=== PATIENT | female | born 1940 | race Caucasian/White ===

== ENCOUNTER → 2017-04-16 | Outpatient (CLI) | payer MEDICARE, BC ==
[2017-04-16 21:21] LABS: BASO % 0.4 % (0.0-2.0); EOS # 0.1 (0.0-0.7); EOS % 2.4 % (0-4.0); GRAN # 3.1 (1.4-6.5); GRAN % 65.4 % (42.2-75.2); HEMATOCRIT 38.3 % (37.0-47.0); HEMOGLOBIN 12.4 g/dl (12.5-16.0); LYMPH # 1.1 (1.2-3.4); LYMPH % 22.4 % (20.0-51.0); MEAN CELL VOLUME 88 fl (80.0-100.0); MEAN CORPUSCULAR HEMOGLOBIN 29 pg (27.0-31.0); MEAN CORPUSCULAR HGB CONC 32 g/dl (33.0-37.0); MONO # 0.4 (0.1-0.6); PLATELET COUNT 178 K/mm3 (130-400); RED BLOOD COUNT 4.35 M/mm3 (4.10-5.30); REDCELL DISTRIBUTION WIDTH-CV 13.3 % (11.5-14.5); WHITE BLOOD COUNT 4.7 K/mm3 (4.8-10.8)
[2017-04-16 21:30] LABS: ADJUSTED CALCIUM 9.1 mg/dL (8.4-10.2); ALBUMIN 4.2 gm/dL (3.5-5.0); BILIRUBIN,TOTAL 0.5 mg/dL (0.0-1.0); CALCIUM 9.3 mg/dL (8.4-10.2); CREATININE, serum 0.72 mg/dL (0.52-1.25); POTASSIUM 4.2 mmol/L (3.4-5.0); TOTAL PROTEIN 7.3 gm/dL (6.4-8.2)
== END ==
LOC: ZCOL.LAB 21:12
PROVIDERS: Internal Medicine
DX: F01.51 Vascular dementia, unspecified severity, with behavioral disturbance (principal); E03.9 Hypothyroidism, unspecified

== ENCOUNTER → 2017-11-30 | Outpatient (CLI) | payer MEDICARE, BC | LOC: ZCOL.LAB 11:24 | DX: F32.9 Major depressive disorder, single episode, unspecified (principal) ==

== ENCOUNTER → 2018-04-08 | Outpatient (CLI) | payer MEDICARE, BC | LOC: ZCOL.LAB 11:14 | DX: E03.9 Hypothyroidism, unspecified (principal) ==

== ENCOUNTER 2018-12-19 13:30 | Inpatient (IN) | payer MEDICARE, BC ==
[~2018-12-19] VITALS: Ht 167.6 cm; Wt 68.9 kg
[2018-12-19] MEDS ORDERED: ARICEPT10 MG PO (13:46)
[2018-12-19] MEDS ORDERED: ALEVE 220MG220 MG PO (13:46)
[2018-12-19] MEDS ORDERED: SYNTHROID0.112 MG/T PO (13:47)
[2018-12-19] MEDS ORDERED: NAMENDA XR 28MG PO (13:48)
[2018-12-19] MEDS ORDERED: REMERON 15M15 MG/TA1 PO (13:50)
[2018-12-19] MEDS ORDERED: ZOLOFT 100MG100 MG PO (13:50)
[2018-12-19 13:59] LABS: ALBUMIN 4.2 gm/dL (3.5-5.0); BILIRUBIN,TOTAL 0.3 mg/dL (0.0-1.0); CALCIUM 9.7 mg/dL (8.4-10.2); CREATININE, serum 0.89 (0.52-1.25); POTASSIUM 3.9 mmol/L (3.4-5.0); TOTAL PROTEIN 7.9 gm/dL (6.4-8.2)
[2018-12-19 14:01] LABS: BASO % 0.4 % (0.0-2.0); EOS # 0.1 (0.0-0.7); GRAN # 5.2 (1.4-6.5); GRAN % 74.4 % (42.2-75.2); HEMOGLOBIN 11.9 g/dl (12.5-16.0); LYMPH # 1.2 (1.2-3.4); LYMPH % 16.8 % (20.0-51.0); MEAN CELL VOLUME 89 fl (80.0-100.0); MEAN CORPUSCULAR HEMOGLOBIN 29 pg (27.0-31.0); MEAN CORPUSCULAR HGB CONC 32 g/dl (33.0-37.0); MEAN PLATELET VOLUME 9.5 fl (7.4-10.4); MONO # 0.4 (0.1-0.6); MONO % 6.3 % (1.7-9.3); PLATELET COUNT 286 K/mm3 (130-400); RED BLOOD COUNT 4.12 M/mm3 (4.10-5.30); REDCELL DISTRIBUTION WIDTH-CV 13.2 % (11.5-14.5)
[2018-12-19 14:03] LABS: HEMATOCRIT 36.7 % (37.0-47.0)
[2018-12-19 14:14] LABS: PROTHROMBIN TIME 11.7 SECONDS (9.7-12.8)
--- NOTE | 2018-12-19 17:15 | NUR ---
arrived on unit per cart, assisted off cart and into bed, crying and c/o pain with movement, is teaful and appears very scared, family at bedside, Dr Griggs in to see patient
[2018-12-19 17:28] VITALS: BP 175/78; PULSE 70; TEMP 97.8
--- NOTE | 2018-12-19 17:40 | NUR ---
IV fluids started, medicated with morphine 2mg slow IV
--- NOTE | 2018-12-19 18:00 | NUR ---
appears to be resting quietly now, niece at bedside, explained to patient and niece will need to place catheter and remove linens that have remained under here, nice verbalizes understanding, dodd placed and she tolerated well, urine is light yellow but very cloudy, when rolled to her right side she cried in pain but once linen removed she was able to calm down and begin to rest, when asked where her pain is she stares blankly and is unable to answer, has splint dressing to right arm and it is in a sling,
--- NOTE | 2018-12-19 18:10 | NUR ---
she is alert but not oriented at this time, skin warm and dry, color pink, heart rate strong and regular, lungs CTA, bowel sounds present in 4 quads and abdomen is soft and non tender, peripheral pulses present in 4 extremities,
--- NOTE | 2018-12-19 19:10 | NUR ---
bedside shift report given to HUNTER Le
[2018-12-19 20:29] VITALS: BP 169/64; PULSE 71; TEMP 97.6
--- NOTE | 2018-12-19 20:47 | NUR ---
PT IN BED WITH HOB AT 15 DEGREE ANGLE. PT HAS RIGHT ARM IN KATELYN WRAP AND SLING, ICE TO RIGHT HIP. PT WAS CRYING IN PAIN, GAVE MORAPHINE FOR PAIN. PT'S FAMILY STAYED TILL SHE WAS SETTLED IN AND SLEEPING/RESTING, FAMILY WENT HOME. PT HAS DEMENTIA AND HAS HAD IT FOR 10 YEARS. PT HAS NO FURTHER NEEDS CALL LIGHT WITHIN REACH AND BED ALARM IS ON.
[2018-12-20] VITALS (11 sets, daily range): BP systolic 96–138; BP diastolic 47–77; PULSE 58–70; TEMP 96.8–99
--- NOTE | 2018-12-20 00:51 | NUR ---
PT HAS BEEN SLEEPING SINCE FAMILY LEFT. PT HAS BEEN MOVING LEFT EXTREMITIES FROM TIME TO TIME. NO FACIAL GRIMACING AND RESP EVEN AND UNLABORED. BED ALARM ON AND CALL LIGHT WITHIN REACH.
--- NOTE | 2018-12-20 04:08 | NUR ---
WHILE TAKING VITAL SIGNS PT HAD AWAKENED AND STARTED MOANING AND GRUNTING. GAVE MORIPHINE FOR PAIN AND WHILE GIVING IT PT STARTED TO CRY IN PAIN. AFTER RECEIVING THE MEDICATION PT DRIFTED BACK TO SLEEP. PT IS IN BED SLEEPING/RESTING WITH RESP EVEN AND UNLABORED, AND NO S/S OF PAIN OR DISCOMFORT AT THIS TIME. ICE PACK TO RIGHT KNEE. PT HAS BEEN NPO AFTER MIDNIGHT. CALL LIGHT WITHIN REACH. HAVE BEEN GOING INTO ROOM FREQUENTLY, AT LEAST ONCE AN HOUR.
--- NOTE | 2018-12-20 04:41 | NUR ---
PT HAS NOT HAD MUCH URINE OUTPUT. ONLY A SCANT AMOUNT NOT ABLE TO MEASURE.
--- NOTE | 2018-12-20 06:26 | NUR ---
PT HAD AWAKEN DUE TO LABS COMING IN TO DRAW BLOOD. PT WAS CRYING, GAVE PAIN MEDICATION. PT IS NOW SLEEPING/RESTING WITH NO S/S OF PAIN OR DISCOMFORT NOTED. PT'S NIECE WHO IS ALSO DPOA IS IN ROOM WITH PT AT BEDSIDE. CALL LIGHT WITHIN REACH.
[2018-12-20 06:59] LABS: CALCIUM 8.8 mg/dL (8.4-10.2); CREATININE, serum 0.65 (0.52-1.25); POTASSIUM 3.5 mmol/L (3.4-5.0)
[2018-12-20 07:01] LABS: BASO % 0.1 % (0.0-2.0); EOS % 0.5 % (0-4.0); GRAN # 5.6 (1.4-6.5); GRAN % 76.6 % (42.2-75.2); LYMPH # 0.9 (1.2-3.4); LYMPH % 12.7 % (20.0-51.0); MEAN CELL VOLUME 90 fl (80.0-100.0); MEAN CORPUSCULAR HGB CONC 31 g/dl (33.0-37.0); MEAN PLATELET VOLUME 10.4 fl (7.4-10.4); MONO # 0.7 (0.1-0.6); MONO % 9.7 % (1.7-9.3); PLATELET COUNT 190 K/mm3 (130-400); RED BLOOD COUNT 3.53 M/mm3 (4.10-5.30); REDCELL DISTRIBUTION WIDTH-CV 13.4 % (11.5-14.5)
[2018-12-20 07:04] LABS: HEMATOCRIT 31.8 % (37.0-47.0); HEMOGLOBIN 9.9 g/dl (12.5-16.0); MEAN CORPUSCULAR HEMOGLOBIN 28 pg (27.0-31.0)
--- NOTE | 2018-12-20 07:36 | NUR ---
Report from Mimi HARRISON.
--- NOTE | 2018-12-20 09:10 | NUR ---
NIRMAL and NIRMAL student met with the patient's niece, Belem, to discuss discharge plan. The patient resides at [facility] for long-term care and the patient's niece reports that the plan is for the patient to return back to [facility] upon discharge. NIRMAL presented and explained the patient choice form to the patient's niece. The patient's niece signed and she was provided a copy. NIRMAL contacted and updated Jo at [facility]. NIRMAL to fax over updates. The patient's DPOA-HC is in her chart and it designates her son (Meño) and her niece (Belem). SW to continue to follow.
[2018-12-20 10:44] LABS: COLLECTION METHOD CATHETER
[2018-12-20 11:00] LABS: MUCOUS Present /lpf; PH 6 (5-8); SQUAMOUS EPITHELIAL None Seen /hpf; URINE APPEARANCE Cloudy; URINE BACTERIA Occasional /hpf; URINE BILIRUBIN Negative (NEGATIVE); URINE BLOOD 3+ (NEGATIVE); URINE COLOR Yellow; URINE GLUCOSE Negative (NEGATIVE); URINE KETONE Negative (NEGATIVE); URINE LEUKOCYTE ESTERASE 3+ (NEGATIVE); URINE NITRATE Negative (NEGATIVE); URINE PROTEIN(semi-quant) 2+ (NEGATIVE); URINE RBC >50 /hpf; URINE UROBILINOGEN Negative (NEGATIVE)
--- NOTE | 2018-12-20 11:48 | NUR ---
Initial visit; Patient's family present. Patient states she is "scared," to which Applications Programmer Analyst offered comfort and empathy. Patient hopefully felt God's peace. Family appeared to appreciate Applications Programmer Analyst visit.
--- NOTE | 2018-12-20 17:26 | NUR ---
PATIENT TO ROOM 328 PER BED @ 1650 WITH REPORT FROM CONNOR HARRISON PACU. PT IS DROWSEY BUT AROUSES TO VERBAL. LUNGS CLEAR BOWEL SOUNDS PRESENT. SCD AND TEDS BILATERALLY. DRESSING TO RIGHT HIP CDI WITH AQUACEL OVER INCISION. NEW CAST INPLACE AND IN SLING TO RIGHT UPPER EXT. STRONG PEDAL PULSES BILATERALLY. IV TO PUMP PER ORDERS. FAMILY AT BEDSIDE.
--- NOTE | 2018-12-20 17:45 | NUR ---
Patient with baseline dementia.
--- NOTE | 2018-12-20 18:38 | NUR ---
Patient resting in bed with eyes closed. Family in room. Bed in lowest position, call light within reach. Report given to HUNTER Swanson.
--- NOTE | 2018-12-20 20:00 | NUR ---
Pt resting. No distress noted. VSS. Pt alert, but confused. Responds to name and some questions. Denies pain at this time. Respirations even and unlabored. Bilateral lung bases diminished. Pt had O2 off when entering room- sPo2 decreased to 91%. O2@1L via NC reapplied for Spo2 95%. BS hypoactive. R arm in cast and sling. R hip incision covered with aquacell- clean dry and intact. ICE to R hip. SCDS in place. Pedal pulses equal- 2+. CMS intact. TEDs and SCDS bilaterally. No needs noted.
[2018-12-21] VITALS: BP 121/43; PULSE 65
[2018-12-21 04:43] VITALS: BP 125/59; PULSE 72; TEMP 98.1
--- NOTE | 2018-12-21 04:43 | NUR ---
Pt very restless. Taking off oxygen and L arm sling. Pt cannot rate pain, but states that she needs pain medicine. Pt spits Hammond out onto floor, when attemting to give it. IV Morphine given instead. Will continue to monitor.
--- NOTE | 2018-12-21 07:00 | NUR ---
Report given to Brie HARRISON. Pt is resting comfortably this AM after administration of PRN pain medication. Phoenix catheter to dependent drainage. TEDs/SCDs in place. IVF infusing to LA IV site without difficulty. No needs noted.
[2018-12-21 07:37] LABS: BASO % 0.1 % (0.0-2.0); EOS % 0.4 % (0-4.0); GRAN # 5.6 (1.4-6.5); LYMPH # 0.7 (1.2-3.4); LYMPH % 10.7 % (20.0-51.0); MEAN CELL VOLUME 90 fl (80.0-100.0); MEAN CORPUSCULAR HGB CONC 32 g/dl (33.0-37.0); MEAN PLATELET VOLUME 9.8 fl (7.4-10.4); MONO # 0.5 (0.1-0.6); MONO % 7.2 % (1.7-9.3); PLATELET COUNT 184 K/mm3 (130-400); RED BLOOD COUNT 3.16 M/mm3 (4.10-5.30); REDCELL DISTRIBUTION WIDTH-CV 13.2 % (11.5-14.5)
[2018-12-21 07:44] LABS: HEMATOCRIT 28.3 % (37.0-47.0); MEAN CORPUSCULAR HEMOGLOBIN 28 pg (27.0-31.0)
[2018-12-21 07:48] LABS: CALCIUM 8.7 mg/dL (8.4-10.2); CREATININE, serum 0.65 (0.52-1.25); POTASSIUM 3.5 mmol/L (3.4-5.0)
[2018-12-21 09:19] VITALS: BP 145/61; PULSE 81; TEMP 97.5
[2018-12-21 12:30] VITALS: BP 112/48; PULSE 82; TEMP 98.9
[2018-12-21 16:18] VITALS: BP 129/50; PULSE 95; TEMP 99.2
--- NOTE | 2018-12-21 18:00 | NUR ---
Yells out when repositioned. Medicated with Morphine prn. Family assisted patient take po fluids. Intake poor. Pills crushed in applesauce, but patient tried to spit them out. Right arm in sling and elevated on pillow. Right hip aquacell dressing CDI. IV fluids infusing.
--- NOTE | 2018-12-21 19:30 | NUR ---
Pt resting with HOB elevated. Niece at bedside. No distress noted. Pt c/o headache. PRN Tylenol administered- crushed in applesauce. Niece reports patient would not eat any dinner, but has eaten some ice cream and milkshake. Lungs clear. BS+. Phoenix catheter to dependent drainage- clear, yellow urine. R hip incsion clean dry and intact- covered with aquacell. ICe to site. SCDS and teds on BLE. Will continue to monitor.
--- NOTE | 2018-12-21 19:39 | NUR ---
Spoke with nurse from [facility] to update on patient status. Questions answered.
[2018-12-21 20:24] VITALS: BP 100/41; PULSE 113; TEMP 97.9
[2018-12-22] VITALS (7 sets, daily range): BP systolic 107–131; BP diastolic 40–59; PULSE 85–111; TEMP 97.5–99.3
--- NOTE | 2018-12-22 01:48 | NUR ---
Pt is moaning and grimacing. Pt is able to tell me she is in pain at this time. PRN pain medication given. Pt is awake and alert.
--- NOTE | 2018-12-22 05:14 | NUR ---
Pt is grimacing and moaning again this AM. Pt states she has pain when asked. Pt awake and alert- nondrowsy. PRN pain medication administered. Will continue to monitor.
--- NOTE | 2018-12-22 06:00 | NUR ---
Pt sleeping, but easily arousable this AM. Pt refusing morning medication crushed in applesauce. Pt slept well last night despite periods of pain.
[2018-12-22 06:57] LABS: BASO % 0.6 % (0.0-2.0); EOS # 0.2 (0.0-0.7); EOS % 2.5 % (0-4.0); GRAN # 5.5 (1.4-6.5); GRAN % 76.4 % (42.2-75.2); LYMPH # 0.8 (1.2-3.4); LYMPH % 11.3 % (20.0-51.0); MEAN CELL VOLUME 89 fl (80.0-100.0); MEAN CORPUSCULAR HGB CONC 32 g/dl (33.0-37.0); MEAN PLATELET VOLUME 10.2 fl (7.4-10.4); MONO # 0.6 (0.1-0.6); MONO % 8.6 % (1.7-9.3); PLATELET COUNT 173 K/mm3 (130-400); RED BLOOD COUNT 2.92 M/mm3 (4.10-5.30); REDCELL DISTRIBUTION WIDTH-CV 13.3 % (11.5-14.5)
[2018-12-22 07:11] LABS: HEMATOCRIT 26.1 % (37.0-47.0); HEMOGLOBIN 8.3 g/dl (12.5-16.0); MEAN CORPUSCULAR HEMOGLOBIN 28 pg (27.0-31.0)
[2018-12-22 07:16] LABS: CALCIUM 8.5 mg/dL (8.4-10.2); CREATININE, serum 0.66 (0.52-1.25); POTASSIUM 3.3 mmol/L (3.4-5.0)
--- NOTE | 2018-12-22 14:16 | NUR ---
IV TO LEFT WRIST LEAKING. 22G IV INSERTED TO LEFT INNER FOREARM. LEFT WRIST IV DISCONTINUED AND REMOVED.
--- NOTE | 2018-12-22 18:30 | NUR ---
Pleasantly confused. Occasionally replies appropriately. Right arm and right leg pain improved with prn pain meds. Tolerated physical therapy better today. Has rested well between activities. Took medications crushed in applesauce or pudding. Intake remains poor. IV fluids infusing. Family attentive.
--- NOTE | 2018-12-22 20:00 | NUR ---
REPORT RECEIVED-ASSUMED CARE FOR [facility]ER [facility]. RESTING IN BED WITH EYES CLOSED. ASSESSMENT COMPLETE. VS STABLE. ASSISTED WITH DINNER TRAY-ONLY ATE 25%. HS MEDICATIONS CRUSHED AND ADMINISTERED. AQUACELL DRESSING TO RIGHT HIP CLEAN/DRY/INTACT. RIGHT ARM IN SLING WITH KATELYN BANDAGE AND BULKY DRESSING. DIALLO CATH DRAINING YELLOW URINE. SCDS/EDWARD HOSE RE-APPLIED. D5 1/2 NS INFUSING AT 60ML/HR. NO REDNESS OR SWELLNG NOTED TO SITE. FRESH ICE PACK APPLIED TO HIP. BED IN LOW POSITION/WHEELS LOCKED. CALL LIGHT WITHIN REACH. WILL CONTINUE TO MONITOR.
[2018-12-23 04:34] VITALS: BP 119/41; PULSE 94; TEMP 97.5
--- NOTE | 2018-12-23 05:55 | NUR ---
HAS RESTED WELL THROUGH THE NIGHT WITH S/S OF PAIN X2. MEDICATED PER DR ORDER. VS STABLE. AQUACELL DRESSING TO R HIP-DRY AND INTACT. RIGHT UPPER EXTREMITY WITH KATELYN BANDAGE AND BULKY WHITE DRESSING. DIALLO DRAINING DARK YELLOW URINE. HAS TAKEN PO PAIN MEDICATIONS CRUSHED IN PUDDING WITHOUT DIFFICULTY. ALERT-CONFUSED. FRESH ICE PACK APPLIED TO HIP. SCDS AND EDWARD HOSE ON. CALL LIGHT WITHIN REACH. BED IN LOW POSITION-WHEELS LOCKED.
[2018-12-23 06:31] LABS: BASO % 0.5 % (0.0-2.0); EOS # 0.2 (0.0-0.7); EOS % 3.3 % (0-4.0); GRAN # 5.1 (1.4-6.5); GRAN % 76.8 % (42.2-75.2); LYMPH # 0.7 (1.2-3.4); LYMPH % 10.6 % (20.0-51.0); MEAN CELL VOLUME 91 fl (80.0-100.0); MEAN CORPUSCULAR HGB CONC 31 g/dl (33.0-37.0); MEAN PLATELET VOLUME 9.9 fl (7.4-10.4); MONO # 0.5 (0.1-0.6); PLATELET COUNT 175 K/mm3 (130-400); RED BLOOD COUNT 2.88 M/mm3 (4.10-5.30); REDCELL DISTRIBUTION WIDTH-CV 13.3 % (11.5-14.5)
[2018-12-23 06:34] LABS: HEMATOCRIT 26.3 % (37.0-47.0); HEMOGLOBIN 8.2 g/dl (12.5-16.0); MEAN CORPUSCULAR HEMOGLOBIN 28 pg (27.0-31.0)
[2018-12-23 06:39] LABS: CALCIUM 8.6 mg/dL (8.4-10.2); CREATININE, serum 0.67 (0.52-1.25); POTASSIUM 3.7 mmol/L (3.4-5.0)
[2018-12-23 08:27] VITALS: BP 118/52; PULSE 95; TEMP 98.2
[2018-12-23] MEDS ORDERED: TYLENOL 325MG325 MG PO (09:52)
[2018-12-23] MEDS ORDERED: VITAMIN C500 MG PO (09:53)
[2018-12-23] MEDS ORDERED: DUO-KAPS1 CAP PO (09:53)
[2018-12-23] MEDS ORDERED: DULCOLAX S10 MG/SUPP RC (09:54)
[2018-12-23] MEDS ORDERED: SENOKOT S 50 MG1 TAB PO (09:54)
[2018-12-23] MEDS ORDERED: OSCAL 500 TAB500 MG PO (09:55)
[2018-12-23] MEDS ORDERED: ASPI325T6 PO (09:56)
[2018-12-23] MEDS ORDERED: NORCO 325 MG-51 TAB PO (09:58)
--- NOTE | 2018-12-23 10:00 | NUR ---
HOSPITALIST TEAM ROUNDING. SEE ORDERS. PATIENT WILL LIKELY DISCHARGE BACK TO [facility] LATER TODAY.
--- NOTE | 2018-12-23 10:25 | NUR ---
DC'D DIALLO PER ORDERS. DIALLO CATH TIP INTACT AND PATIENT TOLERATED WELL. NOTED 750CC OF YELLOW HAZY URINE. PATIENT NOTED TO HAVE LARGE, SOFT-FORMED BM IN BED. PATIENT CLEANED UP AND BRIEF INPLACE. PATIENT SCREAMS DURING CARES. HX OF DEMENTIA. FAMILY NOW AT BEDSIDE. BED ALARM ON. CALL LIGHT IN REACH.
[2018-12-23 12:43] VITALS: BP 129/88; PULSE 92; TEMP 97.6
--- NOTE | 2018-12-23 14:13 | NUR ---
Patient will discharge today (12/23) to [facility] for detention, PT and OT. NIRMAL contacted patient's DPOA, Belem, to review IM. Belem gave verbal consent for IM. NIRMAL contacted Marysol about discharge. Marysol reported she spoke with patient's sister and they would like patient to be tranported via EMS because she is unable to sit in a wheelchair. NIRMAL contacted [facility] and arranged transportation for 3pm. NIRMAL also faxed discharge orders to [facility].
[2018-12-23 14:23] VITALS: BP 129/88; PULSE 92; TEMP 97.6
[2018-12-23 14:30] VITALS: BP 129/88; PULSE 92; TEMP 97.6
[2018-12-23 14:31] VITALS: BP 129/88; PULSE 92; TEMP 97.6
--- NOTE | 2018-12-23 15:05 | NUR ---
PATIENT DISCHARGING VIA EMS TO [facility]. IV & TELE DC'D. CALLED REPORTS TO [facility]. PATIENT DISCHARGED.
== END 2018-12-23 15:05 | DRG 470 ==
LOC: COL.ER 13:30 → JCC 14:18
PROVIDERS: Emergency Medicine; Internal Medicine; Orthopaedic Surgery; Physician Assistant; ADMIT Internal Medicine
PROC: 0SRR0J9 Replacement of Right Hip Joint, Femoral Surface with Synthetic Substitute, Cemented, Open Approach (ICD-10-PCS; principal; 2018-12-20 13:00)
PROC: 2W38X2Z Immobilization of Right Upper Extremity using Cast (ICD-10-PCS; 2018-12-20 13:00)
DX: S72.001A Fracture of unspecified part of neck of right femur, initial encounter for closed fracture (principal); S42.291A Other displaced fracture of upper end of right humerus, initial encounter for closed fracture; F02.81 Dementia in other diseases classified elsewhere, unspecified severity, with behavioral disturbance; Z66 Do not resuscitate; S52.021A Displaced fracture of olecranon process without intraarticular extension of right ulna, initial encounter for closed fracture; W18.30XA Fall on same level, unspecified, initial encounter; G30.9 Alzheimer's disease, unspecified; F02.80 Dementia in other diseases classified elsewhere, unspecified severity, without behavioral disturbance, psychotic disturbance, mood disturbance, and anxiety; E78.5 Hyperlipidemia, unspecified; E03.9 Hypothyroidism, unspecified; Z87.891 Personal history of nicotine dependence; F32.9 Major depressive disorder, single episode, unspecified; F39 Unspecified mood [affective] disorder; E87.6 Hypokalemia; D64.9 Anemia, unspecified
CPT/HCPCS: 99222-AI; 99232-AI; 99233-AI; 99239; A4216; A9284; C1776; J0690; J0696; J1100; J2250; J2270; J2405; J2704; J3010; J7120; Q4050

== ENCOUNTER → 2019-06-16 | Outpatient (CLI) | payer MEDICARE, BC ==
[~2019-06-16] MED LIST: ALEVE 220MG220 MG PO; ARICEPT10 MG PO; ASPI325T6 PO; DULCOLAX S10 MG/SUPP RC; DUO-KAPS1 CAP PO; NAMENDA XR 28MG PO; NORCO 325 MG-51 TAB PO; OSCAL 500 TAB500 MG PO; REMERON 15M15 MG/TA1 PO; SENOKOT S 50 MG1 TAB PO; SYNTHROID0.112 MG/T PO; TYLENOL 325MG325 MG PO; VITAMIN C500 MG PO; ZOLOFT 100MG100 MG PO
== END ==
LOC: ZCOL.LAB 14:16
DX: E03.9 Hypothyroidism, unspecified (principal)